=== PATIENT | female | born 1945 | race Two or more races ===

== ENCOUNTER 2024-12-14 11:07 | Outpatient (CLI) | payer OTHER ==
[2024-12-14 12:50] LABS: HEMATOCRIT 30.3 % (36.0-45.00); HEMOGLOBIN 10.6 g/dL (12.0-15.00); MEAN CELL VOLUME 89.5 fL (80.00-100.00); MEAN CORPUSCULAR HEMOGLOBIN 31.5 pg (27.00-32.0); MEAN CORPUSCULAR HGB CONC 35.2 g/dl (32.0-36.0); PLATELET COUNT 259 K/uL (150-450); RED BLOOD COUNT 3.38 M/uL (4.00-6.00); RED CELL DISTRIBUTION WIDTH 13.5 % (11.5-14.5)
[2024-12-14 13:21] LABS: ALBUMIN 3.5 gm/dL (3.4-5.0); BILIRUBIN TOTAL 0.36 mg/dL (0.3-1.2); CALCIUM 9.5 mg/dL (8.5-10.1); CHOL HDL RATIO 2.7 (0-5.0); CREATININE SERUM 0.82 mg/dL (0.55-1.02); GFR 67.42; GLOBULINA 3.5 G/DL (2.4-3.5); POTASSIUM 4.01 mEq/L (3.5-5.1); T4 TOTAL 11.13 UG/DL (4.8-13.9); TSH 2.53 uIU/mL (0.358-3.74)
[2024-12-14 13:22] LABS: PH,URINE 7.5 (5.0-8.0); URINE APPEARANCE Clear; URINE BILIRRUBIN Negative (NEGATIVE); URINE BLOOD Negative; URINE COLOR Yellow; URINE GLUCOSE Negative (NEGATIVE); URINE KETONE Negative (NEGATIVE); URINE LEUKOCYTE Negative; URINE NITRATE Negative; URINE UROBILINOGEN 0.2 E.U./dl
[2024-12-14 13:23] LABS: URINE BACTERIA 15.9 uL (0.0-1933); URINE RBC 19.7 uL (0.0-20.8)
[2024-12-14 13:33] LABS: URINE CAST 0.29 uL (0.0-1.40); URINE EPITHELIAL CELLS 0.9 uL (0.0-38.8); URINE PROTEIN 300 (NEGATIVE); URINE WBC 1.7 uL (0.0-23.2)
[2024-12-16 11:59] LABS: T3 TOTAL 1.07 ng/ml (0.846-2.02); VITAMIN D3 25 HYDROXY 46.2 ng/ml (30-120)
== END 2024-12-14 11:21 | disposition home or self-care (01) ==
LOC: LAB 11:07
PROVIDERS: ATTEND Internal Medicine Cardiovascular Disease
DX: E03.9 Hypothyroidism, unspecified (principal); E11.9 Type 2 diabetes mellitus without complications; I10 Essential (primary) hypertension; E78.2 Mixed hyperlipidemia; D64.0 Hereditary sideroblastic anemia; Z12.11 Encounter for screening for malignant neoplasm of colon; E55.9 Vitamin D deficiency, unspecified; M81.0 Age-related osteoporosis without current pathological fracture; N39.0 Urinary tract infection, site not specified

== ENCOUNTER 2025-03-04 13:31 | Outpatient (CLI) | payer OTHER | END 2025-03-04 13:39 | disposition home or self-care (01) | LOC: TOM 13:31 | PROVIDERS: ATTEND Internal Medicine Cardiovascular Disease | DX: R51.9 Headache, unspecified (principal) ==

== ENCOUNTER 2025-05-03 10:12 | Outpatient (CLI) | payer OTHER ==
[2025-05-03 10:45] LABS: BASO % 0.3 % (0.1-1.2); EOS # 0.19 (0.04-0.54); EOS % 2.0 % (0.7-7.0); LYMPH # 1.36 (1.18-3.74); LYMPH % 14.2 % (19.3-53.1); MEAN PLATELET VOLUME 9.30 fl (9.4-12.4); MONO # 0.74 (0.24-0.82); MONO % 7.7 % (4.7-12.5); NEUT # 7.24 (1.56-6.13); NEUT % 75.4 % (34.0-71.1); RED CELL DISTRIBUTION WIDTH 12.9 % (11.6-14.4)
[2025-05-03 11:30] LABS: ALT/SGPT 25.0 U/L (12-78); AST/SGOT 21.0 U/L (15-37); BILIRUBIN TOTAL 0.46 mg/dL (0.3-1.2); BUN CREA RATIO 30.0 (7.0-25.0); CHOL HDL RATIO 2.7 (0-5.0); CREATININE SERUM 0.8 mg/dL (0.55-1.02); GFR 69.37; GLOBULINA 3.4 G/DL (2.4-3.5); GLUCOSE FASTING 79.0 mg/dL (65-100); HDL 51.0 mg/dl (40-60); LDL 69.0 mg/dl (0-130); OSMOLALITY SERUM 284.0 MOSM/KG (275-295); T4 TOTAL 9.47 UG/DL (4.8-13.9); TSH 1.96 uIU/mL (0.358-3.74); VLDL 17.0 (0-39)
== END 2025-05-03 10:14 | disposition home or self-care (01) ==
LOC: LAB 10:12
PROVIDERS: ATTEND Internal Medicine Cardiovascular Disease
DX: E03.9 Hypothyroidism, unspecified (principal); I10 Essential (primary) hypertension; E11.9 Type 2 diabetes mellitus without complications; E78.2 Mixed hyperlipidemia; D64.0 Hereditary sideroblastic anemia; Z12.11 Encounter for screening for malignant neoplasm of colon